=== PATIENT | female | born 1995 | race Caucasian/White ===

== ENCOUNTER 2023-02-22 08:19 | Outpatient (CLI) | payer OTHER, SELFPAY | END 2023-02-22 08:20 | disposition home or self-care (01) | PROVIDERS: PCP Family Medicine; Visit Provider Physician Assistant Medical | DX: R07.9 Chest pain, unspecified (principal); R00.2 Palpitations | CPT/HCPCS: 80053; 80061; 84443 ==

== ENCOUNTER 2023-02-28 13:31 | Outpatient (CLI) | payer OTHER, SELFPAY ==
--- OUTSIDE RECORDS SUMMARY | 2023-02-28 13:35 | XMS_ITS | Patient Health Record ---
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 confirmed Tendon contracture (423299252) (BRIANA) Problem 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
[2023-02-28 14:30] VITALS: BP 130/76; PULSE 94; RESP 18
--- NOTE | 2023-02-28 14:58 | P.STN_ITS ---
Stress Test Note Date Date of test: 02/28/23 Providers Primary care provider: Not a Local Provider Stress test physician: Anibal Zuñiga Stress Test Note Stress test ordered: Stress Echo Indication for test: Chest pain Results discussion: Patient is a very nice 27-year-old female presents here for the above-mentioned test. Cardiac stress test medical history form is reviewed. Pretest EKG is done showing normal sinus rhythm with a ventricular rate of 71 a blood pressure 120 on 78, no acute ST wave changes are noted. Following standard Dada protocol patient is exercised for a total time of 13 minutes 34 seconds, mention metabolic: A 14.1 Mets, with a maximum heart rate of 182 with a target predicted of 116%, maximum blood pressure 154 and 84. No history of chest pain or any anginal equivalent during test, test is terminated because of fulfillment of protocol, she had some very mild shortness of breath, no ST wave changes sugges tive ischemia, and there were no arrhythmias. Impression: Negative electrographic portion of stress echo, conditioning was felt to be excellent Follow up suggested: Patient will be discharged home, clinical correlation with echo images, these will be read by Cardiology, patient was discharged from this facility in good condition.
== END 2023-02-28 14:41 | disposition home or self-care (01) ==
LOC: STRESS 13:33
PROVIDERS: Visit Provider Family Medicine
DX: R07.9 Chest pain, unspecified (principal); R00.2 Palpitations
CPT/HCPCS: 93016; 93325; 93351